=== PATIENT | male | born 1955 | race Caucasian/White ===

== ENCOUNTER 2023-03-11 07:39 | Outpatient (CLI) | payer MEDICARE | END 2023-03-11 07:40 | disposition home or self-care (01) | LOC: ULT 07:39 | PROVIDERS: ATTEND Internal Medicine | DX: K74.60 Unspecified cirrhosis of liver (principal); K80.20 Calculus of gallbladder without cholecystitis without obstruction | CPT/HCPCS: 76705 ==

== ENCOUNTER 2023-10-18 09:31 | Outpatient (CLI) | payer MEDICARE | END 2023-10-18 09:32 | disposition home or self-care (01) | LOC: ULT 09:31 | PROVIDERS: ATTEND Internal Medicine | DX: K70.30 Alcoholic cirrhosis of liver without ascites (principal); R16.2 Hepatomegaly with splenomegaly, not elsewhere classified; K80.20 Calculus of gallbladder without cholecystitis without obstruction | CPT/HCPCS: 76705 ==

== ENCOUNTER 2024-11-22 07:17 | Outpatient (CLI) | payer OTHER | END 2024-11-22 07:18 | disposition home or self-care (01) | LOC: ULT 07:17 | PROVIDERS: ATTEND Internal Medicine Hematology & Oncology | DX: R74.01 Elevation of levels of liver transaminase levels (principal); R16.0 Hepatomegaly, not elsewhere classified; K76.0 Fatty (change of) liver, not elsewhere classified; K80.20 Calculus of gallbladder without cholecystitis without obstruction | CPT/HCPCS: 76705 ==